=== PATIENT | female | born 1995 | race Caucasian/White ===

== ENCOUNTER 2023-12-31 14:04 | Emergency (ER) | payer OTHER, SELFPAY ==
--- NOTE | ~2023-12-31 | US_ITS ---
EXAMINATION: US OBSTETRICAL ULTRASOUND CLINICAL INFORMATION: Left lower abdominal pain COMPARISON: None available. LMP: 11/14/2023. Gestational age by maternal dates is 6 weeks 5 days. Estimated date of delivery by maternal dates is 08/20/2024. TECHNIQUE: Ultrasound of the maternal pelvis is performed using transabdominal and transvaginal transducers. Transvaginal imaging is performed due to inadequate visualization transabdominally. M-mode Doppler is also performed. FINDINGS: There is a single intrauterine gestational sac with visible yolk sac, embryo/fetus, and cardiac activity. There is no significant subchorionic hemorrhage or hematoma. HR: 109 beats per minute. CRL (crown rump length): 0.24 cm (5 weeks 6 days +/- 4 days). CINDY (estimated date of delivery): 08/26/2024 +/- 4 days. MATERNAL ADNEXA: The right maternal ovary measures 3.2 x 2.1 x 1.6 cm which includes a 1.8 cm corpus luteal cyst The left maternal ovary was not seen. There is no significant maternal adnexal mass. No maternal pelvic ascites. US/US OB <= 14 weeks fetus IMPRESSION: 1. Single intrauterine gestation with ultrasound gestational age of 5 weeks 6 days +/- 4 days. 2. Estimated date of delivery is 08/26/2024 +/- 4 days. 3. No maternal adnexal mass or pelvic ascites. Electronically signed by: Alvin Zhang MD 12/31/2023 06:30 PM EDT
[2023-12-31 15:07] VITALS: BP 122/81; PULSE 92; RESP 16; TEMP 37.1; O2SAT 100; BMI 25.2
[2023-12-31 15:20] LABS: MANUAL DIFF FLAG NO
[2023-12-31 15:21] LABS: Basophils Percent Auto 0.2 % (0-2); Eosinophils Absolute Auto 0.1 X10*3/uL (0.0-0.4); Eosinophils Percent Auto 0.8 % (0-4); Hemoglobin 14.5 g/dl (12.0-16.0); Imm Gran Abs Auto 0.03 X10*3/uL (0.00-0.03); Imm Gran Pct Auto 0.3 % (0.0-0.4); Lymphocytes Absolute Auto 1.9 X10*3/uL (1.2-4.9); Lymphocytes Percent Auto 20.5 % (20-40); Mean Corpuscular HGB Conc 34.5 g/dl (31.0-35.0); Mean Corpuscular Hemoglobin 31.3 pg (27.0-33.0); Mean Corpuscular Volume 90.7 fL (80.0-98.0); Mean Platelet Volume 9.3 fL (9.4-12.3); Monocytes Absolute Auto 0.5 X10*3/uL (0.1-1.2); Monocytes Percent Auto 5.5 % (2-11); Neutrophils Absolute Auto 6.6 x10*3/uL (2.0-8.3); Neutrophils Percent Auto 72.7 % (45-73); Platelet Count 252 X10*3/uL (160-400); Red Blood Count 4.63 X10*6/uL (4.20-5.50); Red Cell Distribution Width 12.7 % (11.0-16.0)
[2023-12-31 15:42] LABS: Alanine Aminotransferase 10 U/L (0-31); Albumin Level 4.7 g/dL (3.5-5.0); Alkaline Phosphatase 49 U/L (39-117); Anion Gap 14 (12-20); Aspartate Amino Transferase 11 U/L (5-31); Bilirubin Total 0.4 mg/dL (0.0-1.0); Blood Urea Nitrogen 11 mg/dL (9-16); Calcium 10.1 mg/dL (8.4-10.2); Carbon Dioxide 22 mmol/L (22-29); Chloride 107 mmol/L (96-108); Creatinine Clr Calc Pharmacy 104.4; Estimated Glomerular Filt Rate > 60; Glucose Random 86 mg/dL (60-115); Lipase 24 U/L (8-78); Potassium 4.1 mmol/L (3.3-5.1); Sodium 139 mmol/L (135-145); Total Protein 7.6 g/dL (6.5-8.0)
[2023-12-31 16:06] LABS: HCG Quantitative 57716 mIU/mL
[2023-12-31 21:30] VITALS: BP 101/71; PULSE 85; RESP 18; TEMP 37.1; O2SAT 99
[2023-12-31 21:47] VITALS: BP 99/70; PULSE 84; RESP 16; TEMP 36.8; O2SAT 99
[2023-12-31 21:57] LABS: Appearance Urine Clear; Color Urine Yellow; Glucose Urine UA Negative (Negative); Leukocyte Esterase Urine Negative (Negative); Nitrite Urine Negative (Negative); PH 7.5 (5.0-9.0); Specific Gravity - Urine 1.025 (1.005-1.025); Urine Blood Negative (Negative); Urine Ketones Negative (Negative); Urine Protein Negative (Neg-Trace)
[2023-12-31 22:03] LABS: Bacteria Urine None Seen (None Seen); Hyaline Casts Urine 0-2 /LPF (0-2); RBC Urine 0-2 /HPF (0-2); Squamous Epithelial Cell Urine 0-2 /HPF (0-2); WBC Urine 0-5 /HPF (0-5)
--- NOTE | 2023-12-31 23:25 | ED_ITS ---
HPI - Abdominal Pain General Chief Complaint: Abdominal Pain Stated Complaint: cramping Time Seen by Provider: 12/31/23 21:46 Source: patient Limitations: no limitations History of Present Illness ED Provider: Sherrie Scott PA-C HPI narrative: 28-year-old otherwise healthy female presents with abdominal pain x2 days. Patient states she just discovered she was , her last menstrual period was the 2nd week in October. Associated lower abdominal cramping, primarily on the left side. Denies vaginal bleeding. Denies nausea, vomiting, diarrhea, dysuria. No fevers. Patient has yet to initiate care. Related Data Previous Rx's ?Medication ?Instructions ?Recorded vit no.95-ferrous 1 tab PO DAILY #30 tabs 12/31/23 fumarate 28 mg-folic acid 800 mcg tablet () Allergies Allergy/AdvReac Type Severity Reaction Status Date / Time No Known Allergies Allergy Verified 12/31/23 15:08 Review of Systems Review of Systems Yes all other systems are reviewed and are negative Constitutional: Denies fever(s) Cardiovascular: Denies chest pain and Denies dyspnea Respiratory: Denies dyspnea Gastrointestinal: Reports abdominal pain, Denies diarrhea, Denies nausea and Denies vomiting Genitourinary: Denies dysuria, Reports pelvic pain and Denies vaginal discharge [facility] Past Medical History Attestation statement: The following information was validated with the patient. Social History Social History Alcohol intake: current Smoked in Last 30 Days: No Use of substances other than those prescribed or required for medical reasons: No Advance Directives: No Advance Directives Information Provided: No Patient : Yes Physical Exam ED Vital Signs: Vital Signs - 24 hr 12/31/23 15:07 12/31/23 21:30 12/31/23 21:47 Temperature 98.7 F 98.7 F 98.2 F Pulse Rate 92 85 84 Respiratory Rate 16 18 16 Blood Pressure 122/81 101/71 99/70 Pulse Oximetry 100 99 99 Oxygen Delivery Method Room Air Room Air Room Air BMI result Body Mass Index 25.2 Const Other: Alert, well in appearance Orientation/consciousness: patient oriented x3 Resp Effort & Inspection: normal respiratory effort Cardio Other: Normal peripheral perfusion GI Other: Abdomen is soft, nondistended, mild tenderness across the entire pelvic region no guarding Other: Deferred, as it is not clinically indicated Skin Other: Warm dry no rash Neuro General: patient oriented x3, CN's II-XI intact bilaterally and normal sensation to monofilament Psych Other: Calm cooperative Medical Decision Making Medical Decision Making MDM Narrative: 28-year-old otherwise healthy female presents with abdominal pain x2 days. Patient states she just discovered she was , her last menstrual period was the 2nd week in October. Associated lower abdominal cramping, primarily on the left side. Denies vaginal bleeding. Denies nausea, vomiting, diarrhea, dysuria. No fevers. Patient has yet to initiate care. No chronic issues to address History: Per patient I have considered the following differential diagnoses: Symptoms of early , threatened , ectopic, torsion, TOA , appy, diverticulitis Plan: The patient was sent in to rule out ectopic, she knew that she was , but had yet to have a formal ultrasound. Ultrasound and screening labs were completed from triage, there was no ectopic. There was also no evidence of subchorionic hemorrhage to suggest threatened . 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 To note, the transvaginal ultrasound today also ruled out other pelvic pathology. Thought about diverticulitis, however she has no active nausea vomiting diarrhea. And also no focal left lower quadrant pain, thought about appendicitis, likewise, no focal right lower quadrant pain, no nausea vomiting polyp. She has also had no fevers and she has no evidence of UTI. I have independently reviewed the following tests: Labs: No leukocytosis, not anemic, no electrolyte abnormality, Urine not infected Transvaginal ultrasound: US OBSTETRICAL ULTRASOUND CLINICAL INFORMATION: Left lower abdominal pain COMPARISON: None available. LMP: 11/14/2023. Gestational age by maternal dates is 6 weeks 5 days. Estimated date of delivery by maternal dates is 08/20/2024. TECHNIQUE: Ultrasound of the maternal pelvis is performed using transabdominal and transvaginal transducers. Transvaginal imaging is performed due to inadequate visualization transabdominally. M-mode Doppler is also performed. FINDINGS: There is a single intrauterine gestational sac with visible yolk sac, embryo/fetus, and cardiac activity. There is no significant subchorionic hemorrhage or hematoma. HR: 109 beats per minute. CRL (crown rump length): 0.24 cm (5 weeks 6 days +/- 4 days). CINDY (estimated date of delivery): 08/26/2024 +/- 4 days. MATERNAL ADNEXA: The right maternal ovary measures 3.2 x 2.1 x 1.6 cm which includes a 1.8 cm corpus luteal cyst The left maternal ovary was not seen. There is no significant maternal adnexal mass. No maternal pelvic ascites. US/US OB <= 14 weeks fetus IMPRESSION: 1. Single intrauterine gestation with ultrasound gestational age of 5 weeks 6 days +/- 4 days. 2. Estimated date of delivery is 08/26/2024 +/- 4 days. 3. No maternal adnexal mass or pelvic ascites. Electronically signed by: Alvin Zhang MD 12/31/2023 06:30 PM EDT RP Lab Data 12/31/23 15:16 12/31/23 15:16 Labs: Lab Results 12/31/23 12/31/23 Range/Units 15:16 21:48 WBC 9.0 (4.8-10.8) X10*3/uL RBC 4.63 (4.20-5.50) X10*6/uL Hgb 14.5 (12.0-16.0) g/dl Hct 42.0 (37.0-47.0) % MCV 90.7 (80.0-98.0) fL MCH 31.3 (27.0-33.0) pg MCHC 34.5 (31.0-35.0) g/dl RDW 12.7 (11.0-16.0) % Plt Count 252 (160-400) X10*3/uL MPV 9.3 L (9.4-12.3) fL Immature Gran % (Auto) 0.3 (0.0-0.4) % Neut % (Auto) 72.7 (45-73) % Lymph % (Auto) 20.5 (20-40) % [place] % (Auto) 5.5 (2-11) % Eos % (Auto) 0.8 (0-4) % Baso % (Auto) 0.2 (0-2) % Lymph # (Auto) 1.9 (1.2-4.9) X10*3/uL [place] # (Auto) 0.5 (0.1-1.2) X10*3/uL Eos # (Auto) 0.1 (0.0-0.4) X10*3/uL Baso # (Auto) 0.0 (0.0-0.2) X10*3/uL Abs Immat Gran (auto) 0.03 (0.00-0.03) X10*3/uL Absolute Neuts (auto) 6.6 (2.0-8.3) x10*3/uL Absolute Nucleated RBC 0.000 (0.0-0.012) X10*3/uL Nucleated RBC % (auto) 0.0 (0.0-0.2) /100WBC Sodium 139 (135-145) mmol/L Potassium 4.1 (3.3-5.1) mmol/L Chloride 107 (96-108) mmol/L Carbon Dioxide 22 (22-29) mmol/L Anion Gap 14 (12-20) BUN 11 (9-16) mg/dL Creatinine 0.74 (0.5-1.4) mg/dL Estim Creat Clear Calc 104.4 Estimated GFR > 60 Random Glucose 86 (60-115) mg/dL Calcium 10.1 (8.4-10.2) mg/dL Total Bilirubin 0.4 (0.0-1.0) mg/dL AST 11 (5-31) U/L ALT 10 (0-31) U/L Alkaline Phosphatase 49 (39-117) U/L Total Protein 7.6 (6.5-8.0) g/dL Albumin 4.7 (3.5-5.0) g/dL Lipase 24 (8-78) U/L Beta HCG, Quant 53245 mIU/mL Urine Color Yellow Urine Appearance Clear Urine pH 7.5 (5.0-9.0) Ur Specific Rose 1.025 (1.005-1.025) Urine Protein Negative (Neg-Trace) mg/dL Urine Glucose (UA) Negative (Negative) mg/dL Urine Ketones Negative (Negative) mg/dL Urine Blood Negative (Negative) Urine Nitrite Negative (Negative) Ur Leukocyte Esterase Negative (Negative) Urine RBC 0-2 (0-2) /HPF Urine WBC 0-5 (0-5) /HPF Ur Squamous Epith Cells 0-2 (0-2) /HPF Urine Bacteria None Seen (None Seen) Hyaline Casts 0-2 (0-2) /LPF Discharge Plan Discharge Clinical Impression: Abdominal pain during Patient Disposition: Home, Self-Care Instructions: Abdominal Pain in (ED) Additional Instructions: All of your labs were normal including your urinalysis which did not reveal a urinary tract infection. The transvaginal ultrasound was normal as well, you were measuring approximately 5 weeks and 4-6 days gestation. Keep your pending follow up appointment with your OBGYN. We are starting you on vitamins. In regard to your discomfort, you can use [id number] Tylenol 1000 mg taken every 8 hours. Return precautions for onset of severe, focal abdominal pain with vaginal bleeding, active vomiting, diarrhea, pain with urination or fever. Prescriptions: New PNV cmb#95-ferrous fumarate-FA [] 28 mg iron- 800 mcg tablet 1 tab PO DAILY Qty: 30 0RF Stand Alone Forms: Work/School Release Print Language: Wallisian
[2023-12-31 23:42] VITALS: BP 99/68; PULSE 84; RESP 16; TEMP 36.9; O2SAT 98
[2023-12-31 23:52] VITALS: BP 99/68; PULSE 84; RESP 16; TEMP 36.9; O2SAT 98
== END 2023-12-31 23:53 | disposition home or self-care (01) ==
PROVIDERS: Physician Assistant; Emergency Provider Emergency Medicine
DX: O26.891 Other specified pregnancy related conditions, first trimester (principal); R10.2 Pelvic and perineal pain; Z3A.01 Less than 8 weeks gestation of pregnancy
CPT/HCPCS: 36415; 76801; 80053; 81001; 83690; 84702; 85025; 99284